=== PATIENT | male | born 1960 | race Caucasian/White ===

== ENCOUNTER → 2020-11-28 11:31 | Outpatient (BNVA) | payer MEDICARE, MEDICAID, SELFPAY | PROVIDERS: PCP Internal Medicine; Visit Provider Internal Medicine | DX: I47.1 Supraventricular tachycardia (principal); Z51.81 Encounter for therapeutic drug level monitoring; Z79.899 Other long term (current) drug therapy | CPT/HCPCS: Q3014 ==

== ENCOUNTER → 2021-06-24 10:44 | Outpatient (BNVA) | payer MEDICARE, MEDICAID, SELFPAY | PROVIDERS: PCP Internal Medicine; Referring Provider Internal Medicine; Visit Provider Internal Medicine | DX: I47.1 Supraventricular tachycardia (principal); Z72.0 Tobacco use; Z51.81 Encounter for therapeutic drug level monitoring; Z79.899 Other long term (current) drug therapy | CPT/HCPCS: 93005; 99212 ==

== ENCOUNTER 2021-11-27 11:27 | Outpatient (REF) | payer MEDICARE, MEDICAID, SELFPAY ==
[2021-11-27 14:09] LABS: Alanine Aminotransferase 10 U/L (0-40); Albumin Level 4.5 g/dL (3.5-5.0); Alkaline Phosphatase 89 U/L (39-117); Anion Gap 12 (12-20); Aspartate Amino Transferase 13 U/L (5-37); Bilirubin Total 0.6 mg/dL (0.0-1.0); Blood Urea Nitrogen 15 mg/dL (9-16); Calcium 10.3 mg/dL (8.4-10.2); Carbon Dioxide 28 mmol/L (22-29); Chloride 104 mmol/L (96-108); Estimated Glomerular Filt Rate > 60; Glucose Random 82 mg/dL (60-115); Potassium 4.6 mmol/L (3.3-5.1); Sodium 139 mmol/L (135-145); Total Protein 7.5 g/dL (6.5-8.0); Triglycerides 85 mg/dL
[2021-11-29 02:37] LABS: LDL Cholesterol Direct 92 mg/dL (<100)
== END 2021-11-27 11:28 | disposition home or self-care (01) ==
LOC: HO.HMGCLDS 11:27
PROVIDERS: PCP Internal Medicine; Visit Provider Internal Medicine
DX: E78.9 Disorder of lipoprotein metabolism, unspecified (principal); I47.1 Supraventricular tachycardia; Z72.0 Tobacco use
CPT/HCPCS: 36415; 80053; 83721; 84478

== ENCOUNTER → 2021-12-30 10:58 | Outpatient (BNVA) | payer MEDICARE, MEDICAID, SELFPAY | PROVIDERS: PCP Internal Medicine; Referring Provider Internal Medicine; Visit Provider Internal Medicine | DX: I47.1 Supraventricular tachycardia (principal); Z72.0 Tobacco use; Z51.81 Encounter for therapeutic drug level monitoring; Z79.899 Other long term (current) drug therapy | CPT/HCPCS: 93005; 99212 ==

== ENCOUNTER → 2022-07-08 13:18 | Outpatient (BNVA) | payer MEDICARE, MEDICAID, SELFPAY | PROVIDERS: PCP Internal Medicine; Referring Provider Internal Medicine; Visit Provider Internal Medicine | DX: I47.1 Supraventricular tachycardia (principal) | CPT/HCPCS: 93005; 99212 ==

== ENCOUNTER 2023-06-26 14:19 | Outpatient (AMB) | payer MEDICARE, MEDICAID, SELFPAY ==
[2023-06-26 14:26] VITALS: BP 102/54; PULSE 83; O2SAT 96; BMI 24.1
--- NOTE | 2023-06-26 14:26 | A.OFFVIS_ITS ---
Intake Vital Signs 06/26/23 14:26 Height 6 ft Weight 177 lb 6 oz BMI 24.1 BP 102/54 L Blood Pressure Location Rt brachial Position Sitting Pulse 83 Pulse Source Pulse Oximeter Pulse Oximetry (%) 96 Oxygen Delivery Method Room Air Intake Visit Reasons: AWV Allergies No Known Allergies Allergy (Verified 06/26/23 14:26) Medication List - Last Reconciled 06/26/23 by Alyse Waldrop MD acetaminophen 325 mg PO Q8H PRN benztropine 1 mg PO BID PRN clozapine PO 1 tab in the morning and 3 tablets at night; docusate sodium (Stool Softener) 100 mg PO BID gemfibrozil 600 mg PO BID 90 days lamotrigine 100 mg PO BEDTIME metoprolol succinate ER 50 mg PO DAILY 90 days metoprolol succinate ER 25 mg PO DAILY 90 days omega 6-ivk-scz-fish oil 1,200 (144-216) mg (Fish Oil) 1 cap PO DAILY paliperidone palm (3 month) mg IM [id number] polyethylene glycol 3350 (Purelax) 17 grams PO DAILY Do you need a note to return to daycare/school/sports/work: No HPI AWV HPI Details patient is 62 Year old male came in for AWV and regular follow up due for labs he is in his usual state of health and is here with his career development counselor continue to smoke decline colon screening patient see cardio as well for SVT and is taking Metoprolol He has diagnosis of Schizophernia and is seeing Psych, all Psych meds thru them contipation is stable with Miralax, that is the only med from this office Continue to smoke, once again patient advised to stop as soon as possible help is available if needed. HPI Comments History of Present Illness Details AWV medical/social history reviewed Past medical history reviewed [facility] Point of care / care team list updated Surgical/ hospitalization history reviewed Current medications including OTC and supplements reviewed Family history reviewed Tobacco controlled form updated Alcohol use form updated Illicit drug use in social history reviewed Current diagnosis of depression screening updated Appropriate PHQ 2/PHQ-9 completed MMSE completed . Fall risk: Assessed Fall history: None Have you had any falls with injury in the past year? No Have you had 2 or more falls in the past year? No Fall risk assessment completed HRA filled out by the patient reviewed by provider and scanned . Examination IPPE/AWE: Balance intact Romberg intact Tandem walk failed walk-in turn intact rise from sit to stand intact . Hearing whisper test pass Medication list reviewed, patient is stable on medications All other providers patient is seeing discussed and noted PPP handed to patient [facility] Medical History Psychotic disorder Schizophrenia Tobacco abuse Lipid disorder SVT (supraventricular tachycardia) Surgical History History of kidney stones Family History Father Unknown family medical history Mother Unknown family medical history Social History Housing: Assisted Living Facility Patient Tobacco Use Status: Current everyday Tobacco user Tobacco use type: Cigar Cigarettes Per Day: 10 e-Cigarette/Vaping Use: Never Used service: No Current occupational status: disabled Cognitive needs: No Hearing needs: No Vision needs: Yes Questionnaire Medicare Wellness Checkup What [age] 65-70 What gender do you identify with?: male During the past 4 weeks, how much have you been bothered by emotional problems such as feeling anxious, depressed, irritable, sad or downhearted, and blue?: slightly During the past 4 weeks, has your physical & emotional health limited your social activities with family, friends, neighbors, or groups?: not at all During the past 4 weeks, how much bodily pain have you generally had?: no pain During the past 4 weeks, was someone available to help you if you needed & wanted help?: no, not at all During the past 4 weeks, what was the hardest physical activity you could do for at least 2 minutes?: light Can you get to places out of walking distance without help? (For eg., can you travel alone on buses, taxis or drive your car?): Yes Can you go shopping for groceries or clothes without someone's help?: No Can you prepare your own meals?: Yes Can you do your housework without help?: No Because of any health problems, do you need the help of another person with your personal care needs such as eating, bathing, dressing or getting around the house?: No Can you handle your own money without help?: Yes During the past 4 weeks, how would you rate your health in general?: excellent During the past 4 weeks how have things been going for you?: pretty well Are you having difficulties driving your car?: not applicable, I don't use a car Do you always fasten your seat belt when you are in a car?: yes, usually During past 4 weeks, have you been bothered by the following: never: Falling or dizzy when standing up, Sexual problems?, Trouble eating well?, Teeth or denture problems?, Problems using the telephone? and Tiredness or fatigue? Have you fallen 2 or more times in the past year?: No Are you afraid of falling?: No Are you a smoker?: yes, but I'm not ready to quit During the past 4 weeks, how many drinks of wine, beer, or other alcoholic beverages did you have?: no alcohol at all Do you exercise for about 20 minutes 3 or more times a week?: no, I usually do not exercise this much Have you been given information to help with the following?: yes: Keeping track of your medications? and no: Hazards in your house that might hurt you? How often do you have trouble taking medicines the way you have been told to take them?: I always take medicine as prescribed How confident are you that you can control & manage most of your health problems?: somewhat confident What is your race?: White Mini Mental State Exam (MMSE) Orientation What is the (year) (season) (date) (day) (month)?: year, season, date, day and month Where are we (state) (county) (town or city) (hospital) (floor)?: state, county, town or city, hospital/clinic and floor Score Score: 10 Activity of Daily Living Bathing - sponge bath, tub bath or shower: receives no assistance (gets in/out by self, if usual bathing means Dressing - getting clothes from closets & drawers, including inner/outer garments & fasteners.: gets clothes & gets completely dressed without help Toileting - going to the 'toilet room' for urine/bowel elimination & cleaning self/arranging clothes: goes to toilet room, cleans self, arranges clothes without help Transfer: moves in & out of bed and chair without help (may use support object) Continence: controls urination/bowel movements completely by self Feeding: feeds self without help Total Score: 0 Information obtained from: informant Using telephone: independent Traveling: dependent Shopping: dependent Preparing meals: dependent Housework: dependent Taking medicine: dependent Managing money: dependent PHQ-9 Over the last 2 weeks, how often have you been bothered by any of the following problems? 1. Little interest or pleasure in doing things: several days 2. Feeling down, depressed, or hopeless: not at all 3. Trouble falling or staying asleep, or sleeping too much: not at all 4. Feeling tired or having little energy: not at all 5. Poor appetite or overeating: not at all 6. Feeling bad about yourself - or that you are a failure or have let yourself or your family down: not at all 7. Trouble concentrating on things, such as reading the newspaper or watching television: more than half the days 8. Moving or speaking so slowly that other people could have noticed. Or the opposite - being so fidgety or restless that you have been moving around a lot more than usual: not at all 9. Thoughts that you would be better off or of hurting yourself in some way: not at all Total score: 3 Depression Screening Interpretation: Negative Depression Screening Done: Yes 58122 - PHQ-9 Billing: Yes Source: Developed by Drs. Willi Birmingham, Bertha Dillon, Christiano Gomez and colleagues, with an educational romeo from [employer]. Review of Systems Const Denies chills and Denies fever(s) ENT Denies epistaxis and Denies nasal discharge Card Denies chest pain Resp Denies chest congestion, Denies cough and Denies hemoptysis GI Denies diarrhea and Denies nausea Skin/Breast Denies rash Neuro Reports no additional complaints Psych Reports no additional complaints Endo Reports no additional complaints Physical Exam Vital Signs: Last Vital Signs Pulse 83 06/26/23 14:26 BP 102/54 L 06/26/23 14:26 Pulse Ox 96 06/26/23 14:26 Oxygen Delivery Method Room Air 06/26/23 14:26 BMI result Body Mass Index 24.1 Const General: cooperative, comfortable and no acute distress Orientation/consciousness: patient oriented x3 HEENT Head: Yes normocephalic Eyes General: appearance normal, both eyes and all related structures Neck Other: Supple Neck: Yes supple Resp Effort & Inspection: normal respiratory effort, no cough and no stridor Cardio Rhythm: regular rhythm Heart sounds: S1 normal heart sound present and S2 normal heart sound present Skin General skin exam: turgor normal Neuro Other: Motor sensory intact General: patient oriented x3, tone normal and moves all extremities Extrem Other: No lower extremity swelling. Right lower extremity: no edema Left lower extremity: no edema Psych Other: Normal effect, speech clear Assessment & Plan Assessment & Plan (1) Medicare annual wellness visit, subsequent: Code(s): Z00.00 - Encounter for general adult medical examination without abnormal findings (2) Lipid disorder: Code(s): E78.9 - Disorder of lipoprotein metabolism, unspecified (3) SVT (supraventricular tachycardia): Code(s): I47.1 - Supraventricular tachycardia (4) Schizophrenia: Code(s): F20.9 - Schizophrenia, unspecified Qualifiers: Schizophrenia type: paranoid schizophrenia Qualified Code(s): F20.0 - Paranoid schizophrenia (5) Tobacco abuse: Code(s): Z72.0 - Tobacco use Plan patient is 62 Year old male came in for AWV and regular follow up due for labs he is in his usual state of health and is here with his career development counselor continue to smoke decline colon screening patient see cardio as well for SVT and is taking Metoprolol He has diagnosis of Schizophernia and is seeing Psych, all Psych meds thru them contipation is stable with Miralax, that is the only med from this office Continue to smoke, once again patient advised to stop as soon as possible help is available if needed. Orders: Orders Complete Blood Count Auto Diff Today E78.9 - Disorder of lipoprotein metabolism, unspecified, F20.9 - Schizophrenia, unspecified, I47.1 - Supraventricular tachycardia, Z00.00 - Encounter for general adult medical examination without abnormal findings, Z72.0 - Tobacco use Comprehensive Met. Panel Today E78.9 - Disorder of lipoprotein metabolism, unspecified, F20.9 - Schizophrenia, unspecified, I47.1 - Supraventricular tachycardia, Z00.00 - Encounter for general adult medical examination without abnormal findings, Z72.0 - Tobacco use Triglycerides Today E78.9 - Disorder of lipoprotein metabolism, unspecified, F20.9 - Schizophrenia, unspecified, I47.1 - Supraventricular tachycardia, Z00.00 - Encounter for general adult medical examination without abnormal findings, Z72.0 - Tobacco use Hemoglobin A1c Today E78.9 - Disorder of lipoprotein metabolism, unspecified, F20.9 - Schizophrenia, unspecified, I47.1 - Supraventricular tachycardia, Z00.00 - Encounter for general adult medical examination without abnormal findings, Z72.0 - Tobacco use LDL Cholesterol Direct Today E78.9 - Disorder of lipoprotein metabolism, unspecified, F20.9 - Schizophrenia, unspecified, I47.1 - Supraventricular tachycardia, Z00.00 - Encounter for general adult medical examination without abnormal findings, Z72.0 - Tobacco use Quality Reporting (2019) Depression/Bipolar (159/160/161/177) PHQ-9: Total score: 3 Coding Level of Care Code Medicare Subsequent (G0439) Est Pt Level 4 (46766) Diagnoses Medicare annual wellness visit, subsequent Z00.00 Lipid disorder E78.9 SVT (supraventricular tachycardia) I47.1 Paranoid schizophrenia F20.0 Schizophrenia type: paranoid schizophrenia Tobacco abuse Z72.0 CPT Codes Advance Care Planning - Time spent: 1-15 minutes, not on file ([id number]) Advance Care Planning Forms completed: [facility] Time spent: 1-15 minutes, not on file Actual minutes spent: 12
== END 2023-06-26 15:34 | disposition home or self-care (01) ==
PROVIDERS: PCP Internal Medicine; Visit Provider Internal Medicine
DX: Z00.00 Encounter for general adult medical examination without abnormal findings (principal); E78.9 Disorder of lipoprotein metabolism, unspecified; I47.1 Supraventricular tachycardia; F20.0 Paranoid schizophrenia; Z72.0 Tobacco use
CPT/HCPCS: 1124F; G0439

== ENCOUNTER 2023-07-08 12:29 | Outpatient (AMB) | payer MEDICARE, MEDICAID, SELFPAY ==
--- NOTE | 2023-07-08 12:57 | MHC.OFFVIS ---
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 Electronics Analyst Required: No Accompanied by: Employee Allergies No Known Allergies Allergy (Verified 07/08/23 13:04) Medication List - Last Reviewed 07/08/23 by Renee Page acetaminophen 325 mg PO Q8H PRN benztropine 1 mg PO BID PRN clozapine PO 1 tab in the morning and 3 tablets at night; docusate sodium (Stool Softener) 100 mg PO BID gemfibrozil 600 mg PO BID 90 days lamotrigine 100 mg PO BEDTIME metoprolol succinate ER 25 mg PO DAILY 90 days naproxen 500 mg PO BID omega 4-yvm-tst-fish oil 1,200 (144-216) mg (Fish Oil) 1 cap PO DAILY paliperidone palm (3 month) mg IM [id number] polyethylene glycol 3350 (Purelax) 17 grams PO DAILY HPI HPI Comments History of Present Illness Details Crispin returns for follow-up regarding supraventricular tachycardia. He was hospitalized in [place] for SVT few years ago. After that, he was put on flecainide and metoprolol. As he was doing fine without any recurrent arrhythmias, we stop the flecainide. He is maintained only on a small dose of beta-gus. It seems he is doing fine. No cardiac symptoms at all. [facility] Medical History Psychotic disorder Schizophrenia Tobacco abuse Lipid disorder SVT (supraventricular tachycardia) Surgical History History of kidney stones Family History Father Unknown family medical history Mother Unknown family medical history Social History Housing: Assisted Living Facility Patient Tobacco Use Status: Current everyday Tobacco user Tobacco use type: Cigar Cigarettes Per Day: 10 e-Cigarette/Vaping Use: Never Used service: No Current occupational status: disabled Cognitive needs: No Hearing needs: No Vision needs: Yes Review of Systems Const All systems reviewed & are unremarkable except as noted in HPI and below Reports as per HPI and Reports no additional complaints Eyes Reports as per HPI and Denies no additional complaints ENT Denies no additional complaints and Reports as per HPI Card Reports as per HPI, Reports no additional complaints, Denies acrocyanosis, Denies chest pain, Denies leg edema, Denies lightheadedness, Denies palpitations and Denies dyspnea Resp Reports as per HPI, Denies no additional complaints and Denies dyspnea GI Reports as per HPI and Denies no additional complaints Reports no additional complaints and Reports as per HPI Musc Reports no additional complaints and Reports as per HPI Skin/Breast Reports system reviewed and no additional complaints, except as documented Neuro Reports no additional complaints and Reports as per HPI Psych Reports no additional complaints and Reports as per HPI Endo Reports no additional complaints, Reports as per HPI and Denies palpitations Yinka/Lymph Reports no additional complaints and Reports as per HPI Aller/Immun Reports no additional complaints and Reports as per HPI Physical Exam Vital Signs: Last Vital Signs Pulse 75 07/08/23 13:04 BP 100/70 07/08/23 13:04 BMI result Body Mass Index 23.6 Const General: comfortable and no acute distress Orientation/consciousness: patient oriented x3 HEENT Other: Unremarkable Head: Yes normal to inspection Neck Neck: Yes normal visual inspection Chest Chest palpation & inspection: normal inspection of the chest Resp Auscultation: rhonchi Cardio Palpation: normal PMI Heart sounds: S1 normal heart sound present, S2 normal heart sound present, no gallops, no murmurs and no rubs GI Palpation (GI): Soft to palpation Back/Spine/Pelvis Other: unremarkable Skin General skin exam: no rashes or lesions noted Neuro General: patient oriented x3 Extrem General: Yes normal to inspection Psych Mental Status: mental status grossly normal Office Procedures EKG Details: EKG with sinus rhythm at 75/Min; no significant ST-T changes and otherwise unremarkable. [place]. [id number], Complete Assessment & Plan Assessment & Plan (1) SVT (supraventricular tachycardia): Code(s): I47.1 - Supraventricular tachycardia Plan EKG today shows normal sinus rhythm. Echocardiogram from 2019 shows normal LVEF, 55-60% with focal hypertrophy of the basal septum, but otherwise unremarkable. Myocardial perfusion imaging study from 2018 showed normal perfusion. He is free of SVT for the last few years. Continue beta-blockers or changes. Coding Level of Care Code Est Pt Level 3 (43850) Diagnoses SVT (supraventricular tachycardia) I47.1 CPT Codes EKG - CPT: 73657-[id number], Complete ([id number])
[2023-07-08 13:04] VITALS: BP 100/70; PULSE 75; BMI 23.6
== END 2023-07-08 13:27 | disposition home or self-care (01) ==
PROVIDERS: Visit Provider Internal Medicine
DX: I47.1 Supraventricular tachycardia (principal)
CPT/HCPCS: 93010; 99213

== ENCOUNTER → 2023-07-08 12:29 | Outpatient (BNVA) | payer MEDICARE, MEDICAID, SELFPAY | PROVIDERS: Visit Provider Internal Medicine | DX: I47.10 Supraventricular tachycardia, unspecified (principal) | CPT/HCPCS: 93005; 99212 ==

== ENCOUNTER 2024-10-13 15:12 | Outpatient (AMB) | payer MEDICARE, MEDICAID, SELFPAY ==
--- NOTE | 2024-10-13 15:20 | A.OFFVIS_ITS ---
Vital Signs 10/13/24 15:21 Height 6 ft Weight 172 lb 6.424 oz BMI 23.4 BP 100/62 Blood Pressure Location Lt brachial Position Sitting Pulse 90 Pulse Source Monitor Intake Visit Reasons: r/s 07/14/24 1 yr followup w/ekg Dish Technician Required: No Ethics Officer: Ethics Officer Present Allergies No Known Allergies Allergy (Verified 10/13/24 15:23) Medication List - Last Reconciled 10/13/24 by Rosalva Chavis NP-C acetaminophen 325 mg PO Q8H PRN benztropine 1 mg PO BID PRN clozapine PO 1 tab in the morning and 3 tablets at night; docusate sodium (Stool Softener) 100 mg PO BID gemfibrozil 600 mg PO BID 90 days lamotrigine 100 mg PO BEDTIME metoprolol succinate ER 50 mg PO DAILY 90 days metoprolol succinate ER 25 mg PO DAILY 90 days risperidone 2 mg PO BEDTIME HPI HPI r/s 07/14/24 1 yr followup w/ekg: Details: Crispin is a 63-year-old male with past medical history of smoking, hyperlipidemia, schizophrenia, who was previously found to have SVT and now presents for follow-up. His last prior visit was 07/08/2023. 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 He lives in a fdc. He says he has been feeling well since his last visit. He has not had any hospitalizations or ER trips. He denies having any rapid heart palpitations. He has no chest pains at rest or during activities. No shortness of breath, orthopnea, edema. He denies lightheadedness, syncope, falls. He walks frequently and says he tolerates it well. He takes his medications as directed. [facility] Medical History Psychotic disorder Schizophrenia Tobacco abuse Lipid disorder SVT (supraventricular tachycardia) Surgical History History of kidney stones Family History Father Unknown family medical history Mother Unknown family medical history Social History Housing: Assisted Living Facility Patient Tobacco Use Status: Current everyday Tobacco user Tobacco use type: Cigar Cigarettes Per Day: 10 e-Cigarette/Vaping Use: Never Used service: No Current occupational status: disabled Cognitive needs: No Hearing needs: No Vision needs: Yes Review of Systems Const All systems reviewed & are unremarkable except as noted in HPI and below ENT Denies dizziness Card Denies chest pain, Denies chest pain at rest, Denies chest pain with activity, Denies rapid heart rate, Denies pedal edema, Denies edema, Denies leg edema, Denies lightheadedness, Denies palpitations, Denies dyspnea, Denies dyspnea on exertion and Denies orthopnea Resp Denies cough, Denies dyspnea and Denies dyspnea on exertion GI Denies hematochezia and Denies change in stool character Musc Denies abnormal gait, Denies limited range of motion, Denies muscle cramps, Denies muscle weakness, Denies numbness, Denies radiating pain into limb, Denies stiffness and Denies tingling Neuro Denies abnormal gait, Denies dizziness, Denies numbness and Denies tingling Endo Denies palpitations Physical Exam Vital Signs: Last Vital Signs Pulse 90 10/13/24 15:21 BP 100/62 10/13/24 15:21 BMI result Body Mass Index 23.4 Const Other: disheveled appearance General: cooperative, comfortable and no acute distress Orientation/consciousness: patient oriented x3 Neck Neck: Yes normal visual inspection Resp Effort & Inspection: normal respiratory effort Auscultation: clear to auscultation bilaterally, no rales, no rhonchi and no wheezes Cardio Rate: regular rate Rhythm: regular rhythm Heart sounds: S1 normal heart sound present, no gallops, no murmurs and no rubs Neuro General: patient oriented x3 Extrem General: Yes normal to inspection, No no pedal edema and No calf tenderness Psych Appearance: grossly normal Mental Status: mental status grossly normal Speech and movement: Normal speech and movement present Office Procedures EKG Details: Today, read by me Normal Sinus Rhythm, rate 90, Qtc 420ms [id number], Complete Assessment & Plan Assessment & Plan (1) SVT (supraventricular tachycardia): Code(s): I47.1 - Supraventricular tachycardia Category: Medical Plan: Remote history NSVT. None in the last several years. Notes indicate last echo 2019 showed EF 55-60%, focal hypertrophy in the basal septum. A nuclear stress test was done 2017 showing normal myocardial perfusion imaging. He has been maintained on metoprolol for heart rate control. Today he denies any heart palpitations, chest discomfort or shortness of breath. EKG today shows normal sinus rhythm, rate 90, QTC 420 milliseconds. He does not drink caffeinated beverages daily. Will continue on current metoprolol XL 75 mg daily. Instructed him to notify us fdc staff members if he notices heart palpitations that are causing concern. Emergency care if ever needed for symptoms. Cardiology follow-up 1 year, sooner if needed. (2) Tobacco abuse: Code(s): Z72.0 - Tobacco use Category: Medical Plan: Continues to smoke daily. (3) Psychotic disorder: Code(s): F29 - Unspecified psychosis not due to a substance or known physiological condition Category: Medical Plan: Resides in fdc. Currently alert, calm and appropriate at this visit. Plan Time spent on chart review, documentation, interview and assessment Coding Level of Care Code Est Pt Level 3 (92539) Complex EM visit Add On G2211 Diagnoses SVT (supraventricular tachycardia) I47.1 Tobacco abuse Z72.0 Psychotic disorder F29 CPT Codes EKG - CPT: 22367-[id number], Complete ([id number]) Time Spent (min) 24
[2024-10-13 15:21] VITALS: BP 100/62; PULSE 90; BMI 23.4
--- OUTSIDE RECORDS SUMMARY | 2024-10-13 16:13 | XMS_ITS | Clinical Summary ---
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 Name Role Phone Physician, Pcp Unknown Primary Care Provider Vilma vailable Social History Tobacco Use Types Packs/Day Years Used Date Smoking Tobacco: Never Assessed Sex and Gender Information Value Date Recorded Sex Assigned at Not on file Legal Sex Male 8:55 PM EST Gender Identity Not on file Sexual Orientation Not on file Plan of Treatment Health Maintenance Due Date Last Done Comments DTaP,Tdap,and Td Vaccines (1 - Tdap) 1980 Pneumococcal Vaccine: 50+ Ye ars (1 of 1 - PCV) 10/23/2011 Zoster Vaccines (1 of 2) 10/23/2011 Cholesterol Screening (Lipid Panel) 07/26/2022 Colorectal Cancer Screening: Colonoscopy 07/26/2022 Depression Screening 07/26/2022 HIV Screening 07/26/2022 Hepatitis C Screening 07/26/2022 Medicare Annual Wellness Visit 07/26/2022 Social Influencers of Health Screening 07/26/2022 COVID-19 Vaccine (1 - 2023-2 5 season) 2024 Influenza Vaccine (#1) 2024 Hypertension/CHF/CAD Annual BMP Blood Test 07/06/2024 RSV Immunization Patients 60 + Years Old (1 - 1-dose 75+ series) 2036 HIB Vaccines Aged Out No longer eligi ble based on patient's age to complete this topic HPV Vaccines Aged Out No longer eligi ble based on patient's age to complete this topic Hepatitis A Vaccines Aged Out No long er eligible based on patient's age to complete this topic Hepatitis B Vaccines Aged Out No long er eligible based on patient's age to complete this topic IPV Vaccines Aged Out No longer eligi ble based on patient's age to complete this topic MMR Vaccines Aged Out No longer eligi ble based on patient's age to complete this topic Meningococcal ACWY Vaccine Aged Out N o longer eligible based on patient's age to complete this topic Meningococcal B Vacine Aged Out No lo nger eligible based on patient's age to complete this topic Pneumococcal Vaccine: Pediat rics (0 to 5 Years) and At-Risk Patients (6 to 64 Years) Aged Out No longer eligible b ased on patient's age to complete this topic RSV Immunization Patients Un dm 20 months Aged Out No longer eligible b ased on patient's age to complete this topic Varicella Vaccines Aged Out No longer eligible based on patient's age to complete this topic Procedures Procedure Name Priority Date/Time Associated Diagnosis Comments CBC WITH AUTO DIFFERENTIAL Routine 10/07/2024 11:23 AM EST Encounter for long-term (current) use of medications Subchronic schizophrenia (CMS/HCC) CBC AND DIFFERENTIAL Routine 10/07/2024 11:23 AM EST Encounter for long-term (current) use of medications Subchronic schizophrenia (CMS/HCC) CBC WITH AUTO DIFFERENTIAL Routine 09/08/2024 1:18 PM EST Encounter for long-term (current) use of medications Subchronic schizophrenia (CMS/HCC) CBC AND DIFFERENTIAL Routine 09/08/2024 1:18 PM EST Encounter for long-term (current) use of medications Subchronic schizophrenia (CMS/HCC) CBC WITH AUTO DIFFERENTIAL Routine 08/05/2024 10:36 AM EST Encounter for long-term (current) use of medications Subchronic schizophrenia (CMS/HCC) CBC AND DIFFERENTIAL Routine 08/05/2024 10:36 AM EST Encounter for long-term (current) use of medications Subchronic schizophrenia (CMS/HCC) from Last 3 Months Results * (ABNORMAL) CBC auto differential (10/07/2024 11:23 AM EST) Only the most recent of3 resultswithin the time period is included. WBC 8.1 4.8 - 10.8 K/[facility] LAB HEMETOLOGY METHOD 10/07/2024 2:06 PM [facility] LAB RBC 4.70 4.50 - 5.50 M/mcL LAB HEMETOLOGY METHOD 10/07/2024 2:06 PM [facility] LAB Hemoglobin 14.6 13.5 - 17.5 g/dL LAB HEMETOLOGY METHOD 10/07/2024 2:06 PM [facility] LAB Hematocrit 44.6 42.0 - 54.0 % LAB HEMETOLOGY METHOD 10/07/2024 2:06 PM [facility] LAB MCV 94.9 79.0 - 98.0 FL LAB HEMETOLOGY METHOD 10/07/2024 2:06 PM [facility] LAB MCH 31.1 27.0 - 32.0 pcg LAB HEMETOLOGY METHOD 10/07/2024 2:06 PM [facility] LAB MCHC 32.7 32.0 - 37.0 g/dL LAB HEMETOLOGY METHOD 10/07/2024 2:06 PM [facility] LAB RDW 12.2 11.0 - 15.0 % LAB HEMETOLOGY METHOD 10/07/2024 2:06 PM [facility] LAB Platelets 298 130 - 400 K/mcL LAB HEMETOLOGY METHOD 10/07/2024 2:06 PM [facility] LAB MPV 11.5(H) 7.0 - 11.0 FL LAB HEMETOLOGY METHOD 10/07/2024 2:06 PM [facility] LAB NRBC 0.0 <1.0 % LAB HEMETOLOGY METHOD 10/07/2024 2:06 PM [facility] LAB NRBC Absolute 0.00 <0.10 K/mcL LAB HEMETOLOGY METHOD 10/07/2024 2:06 PM [facility] Neutrophils Relative 54.4 % LAB HEMETOLOGY METHOD 10/07/2024 2:06 PM [facility] Lymphocytes Relative 32.7 % LAB HEMETOLOGY METHOD 10/07/2024 2:06 PM [facility] Monocytes Relative 10.6 % LAB HEMETOLOGY METHOD 10/07/2024 2:06 PM [facility] Eosinophils Relative 1.5 % LAB HEMETOLOGY METHOD 10/07/2024 2:06 PM [facility] Basophils Relative 0.6 % LAB HEMETOLOGY METHOD 10/07/2024 2:06 PM [facility] LAB Immature Granulocytes Relative 0.2 % LAB HEMETOLOGY METHOD 10/07/2024 2:06 PM [facility] LAB Neutrophils Absolute 4.41 1.50 - 7.00 K/mcL LAB HEMETOLOGY METHOD 10/07/2024 2:06 PM [facility] LAB Lymphocytes Absolute 2.65 1.00 - 5.00 K/mcL LAB HEMETOLOGY METHOD 10/07/2024 2:06 PM [facility] Monocytes Absolute 0.86 0.20 - 1.00 K/mcL LAB HEMETOLOGY METHOD 10/07/2024 2:06 PM [facility] Eosinophils Absolute 0.12 0.00 - 0.50 K/mcL LAB HEMETOLOGY METHOD 10/07/2024 2:06 PM [facility] Basophils Absolute 0.05 0.00 - 0.20 K/mcL LAB HEMETOLOGY METHOD 10/07/2024 2:06 PM [facility] Immature Granulocytes Absolute 0.02 0.00 - 0.03 K/mcL LAB HEMETOLOGY METHOD 10/07/2024 2:06 PM [facility] Blood Venous blood specimen / Unknown Venipuncture / Unknown 10/07/2024 11:23 AM EST 10/07/2024 11:23 AM EST us Sagar Vieyra MD LAB BLOOD ORDERABLES Final Resul t [facility] [address] [place] [address], from Last 3 Months Insurance MEDICARE MEDICAID - [place] Care Teams 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
== END 2024-10-13 15:43 | disposition home or self-care (01) ==
PROVIDERS: PCP Internal Medicine; Visit Provider Nurse Practitioner Family
DX: I47.10 Supraventricular tachycardia, unspecified (principal); Z72.0 Tobacco use; F29 Unspecified psychosis not due to a substance or known physiological condition
CPT/HCPCS: 93010; 99213; G2211

== ENCOUNTER → 2024-10-13 15:12 | Outpatient (BNVA) | payer MEDICARE, MEDICAID, SELFPAY | PROVIDERS: PCP Internal Medicine; Visit Provider Nurse Practitioner Family | DX: I47.10 Supraventricular tachycardia, unspecified (principal); F29 Unspecified psychosis not due to a substance or known physiological condition; Z72.0 Tobacco use | CPT/HCPCS: 93005; 99212 ==

== ENCOUNTER 2024-11-04 11:37 | Outpatient (AMB) | payer MEDICARE, MEDICAID, SELFPAY ==
[2024-11-04 12:04] VITALS: BP 118/76; PULSE 77; O2SAT 97; BMI 24.2
--- NOTE | 2024-11-04 12:04 | A.OFFPC_ITS ---
Vital Signs 11/04/24 12:04 Height 6 ft Weight 178 lb 4 oz BMI 24.2 BP 118/76 Blood Pressure Location Rt brachial Position Sitting Pulse 77 Pulse Source Pulse Oximeter Pulse Oximetry (%) 97 Oxygen Delivery Method Room Air Intake Visit Reasons: Annual PE/late for last appt Allergies No Known Allergies Allergy (Verified 11/04/24 12:04) Medication List - Last Reconciled 11/04/24 by Alyse Waldrop MD benztropine 1 mg PO BID PRN clozapine PO 1 tab in the morning and 3 tablets at night; docusate sodium (Stool Softener) 100 mg PO BID gemfibrozil 600 mg PO BID 90 days lamotrigine 100 mg PO BEDTIME metoprolol succinate ER 50 mg PO DAILY 90 days metoprolol succinate ER 25 mg PO DAILY 90 days risperidone 2 mg PO BEDTIME Tobacco use date assessed: 11/04/24 Dental Screening Dental Screen Date: 11/04/24 Did you have a dental visit in the last 12 months?: No Did you have a dental problem in the last 6 months where you did not have access to dental care?: No Was dental information given to patient?: Patient has dentist HPI Annual PE/late for last appt HPI Details History of Present Illness - The patient is a 64-year-old male with a history of schizophrenia came in today for physical examination - Hyperlipidemia management continues wi th the patient's current medication regimen of gemfibrozil, without changes in therapy or issues in adherence reported - Tobacco use remains a notable factor; smoking cessation was discussed as a vital health intervention. - Recent laboratory work was carried out at [facility]'s temporary lab location; completion confirmed. - Cardiovascular status remains stable w ith normal heart rate and blood pressure. - No acute systemic complaints; denial o f gastrointestinal or respiratory symptoms noted. Health Maintenance - Recent lab work has been completed to monitor cholesterol levels. - Discussion on tobacco cessation as par t of reducing cardiovascular disease risk. - Regular follow-up planned for six dilia hs, with a physical examination scheduled in one year. Patient Instructions - Continue taking gemfibrozil as prescri bed. - Cease use of naproxen if not needed. - Schedule a follow-up appointment in 6 months and a physical in one year. - Discontinue tobacco use for better hea lth. - Await lab results for further assessme nt. Review of Systems - Neurological: No headaches no dizzin ess - Ear nose throat: No sore throat no hearing difficulty no ear pain - Cardiovascular: No syncope, no chest pain, no palpitations - Gastrointestinal: No nausea vomiting or diarrhea - Endocrine: No polyuria polydipsia no heat intolerance - Genitourinary: No dysuria - Skin: No new complaints Physical Exam General: Cooperative, healthy appearing, comfortable, no acute distress Orientation: Patient oriented x3 Head: Normal to inspection Ears: Within normal limit visually Nose: Normal external nose present Face and sinus: Normal facial exam Eyes: Appearance normal, extraocular movement intact pupils reactive Neck: Normal visual inspection and supple Respiratory: Patient is not taking deep breaths unable to follow commands Cardiovascular: S1 and S2, heart rate good, pulse is 77 GI: Normal to inspection. Soft to palpation and nontender Skin: turgor normal, no acute findings Neuro: Alert and awake, get stable Extremities: No swelling PFSH Medical History Psychotic disorder Schizophrenia Tobacco abuse Lipid disorder SVT (supraventricular tachycardia) Surgical History History of kidney stones Family History Father Unknown family medical history Mother Unknown family medical history Social History Housing: Assisted Living Facility Patient Tobacco Use Status: Current everyday Tobacco user Tobacco use type: Cigar Cigarettes Per Day: 10 e-Cigarette/Vaping Use: Never Used service: No Current occupational status: disabled Cognitive needs: No Hearing needs: No Vision needs: Yes Questionnaire Thrive Questionnaire Date Thrive assessed: 06/25/21 Physical exam (Primary Care) Vital Signs: Last Vital Signs Pulse 77 11/04/24 12:04 BP 118/76 11/04/24 12:04 Pulse Ox 97 11/04/24 12:04 Oxygen Delivery Method Room Air 11/04/24 12:04 BMI result Body Mass Index 24.2 Tobacco/Smoking Status: Tobacco use Status Tobacco use date assessed 11/04/24 11/04/24 12:19 Patient Tobacco Use Status Current everyday Tobacco 11/04/24 12:19 Tobacco use type Cigar 11/04/24 12:19 e-Cigarette/Vaping Use Never Used 11/04/24 12:19 Thrive Assessment: Date of Thrive Assessment Date Thrive assessed 06/25/21 11/04/24 12:19 Coding Level of Care Code Est Pt Level 3 (96042) Est Pt Prev Care 40-64y(77945) Diagnoses Encounter for general adult medical examination with abnormal findings Z00.01 Lipid disorder E78.9 Colonoscopy refused Z53.20 Paranoid schizophrenia F20.0 Schizophrenia type: paranoid schizophrenia Tobacco abuse Z72.0 SVT (supraventricular tachycardia) I47.1 Assessment & Plan Assessment & Plan (1) Encounter for general adult medical examination with abnormal findings: Code(s): Z00.01 - Encounter for general adult medical examination with abnormal findings Category: Medical (2) Lipid disorder: Code(s): E78.9 - Disorder of lipoprotein metabolism, unspecified Category: Medical (3) Colonoscopy refused: Code(s): Z53.20 - Procedure and treatment not carried out because of patient's decision for unspecified reasons Category: Medical (4) Schizophrenia: Code(s): F20.9 - Schizophrenia, unspecified Category: Medical Qualifiers: Schizophrenia type: paranoid schizophrenia Qualified Code(s): F20.0 - Paranoid schizophrenia (5) Tobacco abuse: Code(s): Z72.0 - Tobacco use Category: Medical (6) SVT (supraventricular tachycardia): Code(s): I47.1 - Supraventricular tachycardia Category: Medical Plan History of Present Illness - The patient is a 64-year-old male with a history of schizophrenia came in today for physical examination - Hyperlipidemia management continues with the patient's current medication regimen of gemfibrozil, without changes in therapy or issues in adherence reported - Tobacco use remains a notable factor; smoking cessation was discussed as a vital health intervention. - Recent laboratory work was carried out at [facility]'s temporary lab location; completion confirmed. - Cardiovascular status remains stable with normal heart rate and blood pressure. - No acute systemic complaints; denial of gastrointestinal or respiratory symptoms noted. Health Maintenance - Recent lab work has been completed to monitor cholesterol levels. - Discussion on tobacco cessation as part of reducing cardiovascular disease risk. - Regular follow-up planned for six months, with a physical examination scheduled in one year. Patient Instructions - Continue taking gemfibrozil as prescribed. - Cease use of naproxen if not needed. - Schedule a follow-up appointment in 6 months and a physical in one year. - Discontinue tobacco use for better health. - Await lab results for further assessment.
--- OUTSIDE RECORDS SUMMARY | 2024-11-04 13:28 | XMS_ITS | Clinical Summary ---
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] (CMS/HCC) from Last 3 Months Results * CBC auto differential (11/03/2024 10:24 AM EDT) Only the most recent of3 resultswithin the time period is included. WBC 8.7 4.8 - 10.8 K/[facility] LAB HEMETOLOGY METHOD 11/03/2024 11:02 AM [facility] LAB RBC 4.70 4.50 - 5.50 M/mcL LAB HEMETOLOGY METHOD 11/03/2024 11:02 AM [facility] LAB Hemoglobin 15.0 13.5 - 17.5 g/dL LAB HEMETOLOGY METHOD 11/03/2024 11:02 AM [facility] LAB Hematocrit 44.6 42.0 - 54.0 % LAB HEMETOLOGY METHOD 11/03/2024 11:02 AM [facility] LAB MCV 94.7 79.0 - 98.0 FL LAB HEMETOLOGY METHOD 11/03/2024 11:02 AM [facility] LAB MCH 31.8 27.0 - 32.0 pcg LAB HEMETOLOGY METHOD 11/03/2024 11:02 AM [facility] MCHC 33.6 32.0 - 37.0 g/dL LAB HEMETOLOGY METHOD 11/03/2024 11:02 AM [facility] RDW 12.4 11.0 - 15.0 % LAB HEMETOLOGY METHOD 11/03/2024 11:02 AM [facility] LAB Platelets 320 130 - 400 K/mcL LAB HEMETOLOGY METHOD 11/03/2024 11:02 AM [facility] MPV 10.7 7.0 - 11.0 FL LAB HEMETOLOGY METHOD 11/03/2024 11:02 AM [facility] LAB NRBC 0.0 <1.0 % LAB HEMETOLOGY METHOD 11/03/2024 11:02 AM [facility] NRBC Absolute 0.00 <0.10 K/mcL LAB HEMETOLOGY METHOD 11/03/2024 11:02 AM [facility] Neutrophils Relative 62.5 % LAB HEMETOLOGY METHOD 11/03/2024 11:02 AM [facility] Lymphocytes Relative 24.2 % LAB HEMETOLOGY METHOD 11/03/2024 11:02 AM [facility] Monocytes Relative 11.2 % LAB HEMETOLOGY METHOD 11/03/2024 11:02 AM [facility] Eosinophils Relative 1.3 % LAB HEMETOLOGY METHOD 11/03/2024 11:02 AM [facility] Basophils Relative 0.6 % LAB HEMETOLOGY METHOD 11/03/2024 11:02 AM [facility] Immature Granulocytes Relative 0.2 % LAB HEMETOLOGY METHOD 11/03/2024 11:02 AM [facility] Neutrophils Absolute 5.41 1.50 - 7.00 K/mcL LAB HEMETOLOGY METHOD 11/03/2024 11:02 AM [facility] Lymphocytes Absolute 2.09 1.00 - 5.00 K/mcL LAB HEMETOLOGY METHOD 11/03/2024 11:02 AM [facility] Monocytes Absolute 0.97 0.20 - 1.00 K/mcL LAB HEMETOLOGY METHOD 11/03/2024 11:02 AM [facility] Eosinophils Absolute 0.11 0.00 - 0.50 K/mcL LAB HEMETOLOGY METHOD 11/03/2024 11:02 AM [facility] Basophils Absolute 0.05 0.00 - 0.20 K/mcL LAB HEMETOLOGY METHOD 11/03/2024 11:02 AM [facility] LAB Immature Granulocytes Absolute 0.02 0.00 - 0.03 K/mcL LAB HEMETOLOGY METHOD 11/03/2024 11:02 AM [facility] Blood Venous blood specimen / Unknown Venipuncture / Unknown 11/03/2024 10:24 AM EDT 11/03/2024 10:46 AM EDT us Sagar Vieyra MD LAB BLOOD ORDERABLES Final Resul t [facility] [address] [place] [address], [place] [phone] from Last 3 Months Insurance MEDICARE MEDICAID - [place] Care Teams 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
== END 2024-11-04 12:31 | disposition home or self-care (01) ==
LOC: HO.HMCC 11:38
PROVIDERS: PCP Internal Medicine; Visit Provider Internal Medicine
DX: Z00.00 Encounter for general adult medical examination without abnormal findings (principal); F20.0 Paranoid schizophrenia; I47.10 Supraventricular tachycardia, unspecified; E78.9 Disorder of lipoprotein metabolism, unspecified; Z53.20 Procedure and treatment not carried out because of patient's decision for unspecified reasons; Z72.0 Tobacco use

== ENCOUNTER → 2024-11-04 11:37 | Outpatient (BNVA) | payer MEDICARE, MEDICAID, SELFPAY | PROVIDERS: PCP Internal Medicine; Visit Provider Internal Medicine | DX: Z00.01 Encounter for general adult medical examination with abnormal findings (principal); E78.9 Disorder of lipoprotein metabolism, unspecified; F20.0 Paranoid schizophrenia; I47.10 Supraventricular tachycardia, unspecified; Z72.0 Tobacco use | CPT/HCPCS: 99396 ==